=== PATIENT | female | born 1990 | race African-American/Black ===

== ENCOUNTER 2022-10-24 09:43 | Emergency (ER) | payer OTHER ==
[~2022-10-24] VITALS: Ht 170.2 cm; Wt 78.0 kg
[2022-10-24] MEDS ORDERED: IBUP200T46 PO (10:16)
[2022-10-24 13:30] VITALS: BP 138/78
== END 2022-10-24 13:32 | disposition home or self-care (01) ==
LOC: M ED 09:43
DX: S83.91XA Sprain of unspecified site of right knee, initial encounter (principal); Y93.02 Activity, running; Z79.1 Long term (current) use of non-steroidal anti-inflammatories (NSAID)

== ENCOUNTER 2023-08-27 08:04 | Emergency (ER) | payer OTHER ==
[~2023-08-27] VITALS: Ht 170.2 cm; Wt 78.9 kg
[~2023-08-27 08:04] MED LIST: IBUP200T46 PO
[2023-08-27] MEDS ORDERED: NITR100C2 (08:11)
[2023-08-27] MEDS: ONDANSETRON 4MG 2ML VIAL IV ONE (11:09)
[2023-08-27] MEDS: NS 1,000 ML IV ONE (11:09)
[2023-08-27 11:18] LABS: BASO % 0.1 % (0.0-1.0); HEMATOCRIT 41.3 % (36.0-47.0); HEMOGLOBIN 13.1 g/dl (12.0-15.5); LYMPH # 0.8 10^3/uL (1.5-5.0); MEAN CORPUSCULAR HEMOGLOBIN 27.6 pg (27.0-33.0); MEAN CORPUSCULAR HGB CONC 31.7 g/dl (32.0-36.5); MEAN CORPUSCULAR VOLUME 86.9 fl (80.0-96.0); MONO # 0.7 10^3/uL (0.0-0.8); MONO % 6.6 % (2.0-8.0); NEUTROPHILS # 9.5 10^3/uL (1.5-8.5); NEUTROPHILS % 86.1 % (36.0-66.0); PLATELET COUNT, AUTOMATED 256 10^3/uL (150-450); RED BLOOD COUNT 4.75 10^6/uL (4.00-5.40); WHITE BLOOD COUNT 11.1 10^3/uL (4.0-10.0)
[2023-08-27 11:37] LABS: LIPASE 23 U/L (12-53)
[2023-08-27 11:38] LABS: HCG, SERUM QUANTITATIVE < 2.6 MIU/ML (<4.2)
[2023-08-27 11:39] LABS: ALBUMIN 3.7 G/DL (3.2-5.2); ALKALINE PHOSPHATASE 48 U/L (46-116); ALT/SGPT 11 U/L (7.0-40); AST/SGOT 14 U/L (<34); BILIRUBIN,DIRECT 0.5 MG/DL (<0.4); BILIRUBIN,TOTAL 1.2 MG/DL (0.3-1.2); BLOOD UREA NITROGEN 11 MG/DL (9-23); CALCIUM LEVEL 8.8 MG/DL (8.5-10.1); CARBON DIOXIDE LEVEL 29 MMOL/L (20-31); CHLORIDE LEVEL 107 MMOL/L (98-107); CREATININE FOR GFR 0.87 MG/DL (0.55-1.30); GLOMERULAR FILTRATION RATE > 60.0 (>60); GLUCOSE, FASTING 100 MG/DL (60-100); POTASSIUM SERUM 4.7 MMOL/L (3.5-5.1); SODIUM LEVEL 140 MMOL/L (136-145); TOTAL PROTEIN 6.4 G/DL (5.7-8.2)
[2023-08-27] MEDS ORDERED: ISOVUE-370 76% 100ML VIAL As Ordered ONE (11:44)
[2023-08-27] MEDS: KETOROLAC 30 MG/ML 1ML VIAL IV ONE (12:40)
[2023-08-27] MEDS ORDERED: ONDA4TAB6 PO (12:51)
[2023-08-27 12:55] VITALS: BP 126/78; TEMP 97.6; O2SAT 100
== END 2023-08-27 13:42 | disposition home or self-care (01) ==
LOC: M ED 08:04
DX: N83.202 Unspecified ovarian cyst, left side (principal); K86.9 Disease of pancreas, unspecified; R11.2 Nausea with vomiting, unspecified; F10.10 Alcohol abuse, uncomplicated; Z91.010 Allergy to peanuts; Z79.1 Long term (current) use of non-steroidal anti-inflammatories (NSAID); Z79.83 Long term (current) use of bisphosphonates; Z79.899 Other long term (current) drug therapy
CPT/HCPCS: 74177; 80048; 80076; 81001; 83690; 84702; 85025; 87088; 87186; 96361; 96374; 96375; 99284; J1885; J2405; Q9967

== ENCOUNTER 2024-04-16 10:40 | Day surgery (SDC) | payer OTHER ==
[~2024-04-16] VITALS: Ht 170.2 cm; Wt 81.5 kg
[~2024-04-16 10:40] MED LIST changes: +CAPS42.54 EX; +LIDO76.52 TOP; +NITR100C2; +ONDA-282 PO; +VITA100093 PO
[2024-04-16] MEDS ORDERED: LR 1,000 ML IV SCH (11:05)
[2024-04-16 11:08] LABS: HEMATOCRIT 37.3 % (36.0-47.0); HEMOGLOBIN 12.1 g/dl (12.0-15.5); MEAN CORPUSCULAR HEMOGLOBIN 27.5 pg (27.0-33.0); MEAN CORPUSCULAR HGB CONC 32.4 g/dl (32.0-36.5); MEAN CORPUSCULAR VOLUME 84.8 fl (80.0-96.0); PLATELET COUNT, AUTOMATED 248 10^3/uL (150-450); WHITE BLOOD COUNT 7.2 10^3/uL (4.0-10.0)
[2024-04-16] MEDS ORDERED: fentaNYL 100 MCG/2 ML INJECTION As Ordered ONE (12:57)
[2024-04-16] MEDS ORDERED: KETOROLAC 60MG 2ML VIAL As Ordered ONE (12:57)
[2024-04-16] MEDS ORDERED: propofoL 200 MG/20 ML VIAL As Ordered ONE (12:57)
[2024-04-16] MEDS ORDERED: ONDANSETRON 4MG 2ML VIAL As Ordered ONE (12:57)
[2024-04-16] MEDS ORDERED: MIDAZOLAM INJ 2MG/2ML VIAL As Ordered ONE (12:57)
[2024-04-16] MEDS ORDERED: dexmedeTOMIDine (4MCG/ML)200MCG/50ML BTL (PRECEDEX) As Ordered ONE (12:57)
[2024-04-16] MEDS ORDERED: LIDOCAINE 2% 100MG/5ML SDV (FOR ANES.) As Ordered ONE (13:02)
[2024-04-16] MEDS: SILVER NITRATE APPLICATOR (1 = QTY 10) As Ordered ONE (14:39)
[2024-04-16] MEDS: LIDOCAINE W/EPINEPHRINE 1% 20ML VIAL As Ordered ONE (14:46)
[2024-04-16] MEDS ORDERED: oxyCODONE 5MG TAB PO PRN (15:00)
[2024-04-16] MEDS ORDERED: fentaNYL 100 MCG/2 ML INJECTION IV PRN (15:00)
[2024-04-16] MEDS ORDERED: ONDANSETRON 4MG 2ML VIAL IV PRN (15:00)
[2024-04-16 15:41] VITALS: BP 120/82; TEMP 97.4; O2SAT 100
== END 2024-04-16 16:20 | disposition home or self-care (01) ==
LOC: M SDC 10:40
PROVIDERS: ATTEND Student in an Organized Health Care Education/Training Program
DX: N88.9 Noninflammatory disorder of cervix uteri, unspecified (principal); R87.619 Unspecified abnormal cytological findings in specimens from cervix uteri; Z30.432 Encounter for removal of intrauterine contraceptive device; Z91.010 Allergy to peanuts
CPT/HCPCS: 36415; 57456; 58301; 81025; 85027; 86850; 86900; 86901; 88304; 88305; J1100; J1885; J2250; J2405; J3010

== ENCOUNTER 2025-01-01 09:28 | Emergency (ER) | payer OTHER ==
[~2025-01-01] VITALS: Ht 170.2 cm; Wt 89.0 kg
[2025-01-01 11:14] LABS: BASO # 0.0 10^3/uL (0.0-0.2); BASO % 0.3 % (0.0-1.0); EOS # 0.0 10^3/uL (0.0-0.5); EOS % 0.4 % (0.0-3.0); LYMPH # 1.8 10^3/uL (1.5-5.0); LYMPH % 16.4 % (24.0-44.0); MONO # 0.6 10^3/uL (0.0-0.8); MONO % 5.5 % (2.0-8.0); NEUTROPHILS # 8.5 10^3/uL (1.5-8.5); NEUTROPHILS % 76.4 % (36.0-66.0); PLATELET COUNT, AUTOMATED 205 10^3/uL (150-450)
[2025-01-01 11:26] LABS: INR 1.0
[2025-01-01 11:46] LABS: CPK CREATINE PHOSPHOKINASE 42 U/L (34-145)
[2025-01-01 12:06] LABS: ALT/SGPT < 9 U/L (7.0-40); AST/SGOT 13 U/L (<34); CALCIUM LEVEL 8.8 MG/DL (8.5-10.1); CARBON DIOXIDE LEVEL 26 MMOL/L (20-31); CHLORIDE LEVEL 106 MMOL/L (98-107); CK-MB VALUE MASS < 1.0 NG/ML (<3.6); CREATININE FOR GFR 0.68 MG/DL (0.55-1.30); FREE T4 0.92 NG/DL (0.89-1.76); GLOMERULAR FILTRATION RATE > 90.0 (>60); POTASSIUM SERUM 4.0 MMOL/L (3.5-5.1); SODIUM LEVEL 141 MMOL/L (136-145)
[2025-01-01 12:48] LABS: CK-MB VALUE MASS 1.0 NG/ML (<3.6)
[2025-01-01 12:50] LABS: CPK CREATINE PHOSPHOKINASE 57.0 U/L (34-145); MB/CK RELATIVE INDEX 1.75 (< OR =4)
[2025-01-01] MEDS: CALCIUM CARBONATE 500 MG CHEW U/D PO ONE (14:58)
[2025-01-01] MEDS: ACETAMINOPHEN 500 MG TAB PO ONE (15:00)
[2025-01-01 15:52] VITALS: BP 119/69; TEMP 98.2; O2SAT 98
== END 2025-01-01 15:55 | disposition home or self-care (01) ==
LOC: M ED 09:28
DX: O26.892 Other specified pregnancy related conditions, second trimester (principal); R07.9 Chest pain, unspecified; Z3A.24 24 weeks gestation of pregnancy; Z79.899 Other long term (current) drug therapy; Z91.010 Allergy to peanuts

== ENCOUNTER 2025-01-15 14:06 | Outpatient (CLI) | payer OTHER ==
[~2025-01-15] VITALS: Ht 170.2 cm; Wt 87.7 kg
[2025-01-15 14:37] VITALS: BP 117/71
[2025-01-15] MEDS ORDERED: PRENTAB9 PO (14:42)
[2025-01-15 16:51] VITALS: BP 113/70
== END 2025-01-15 17:03 | disposition home or self-care (01) ==
LOC: M LDO 14:06
PROVIDERS: ATTEND Specialist
DX: O26.892 Other specified pregnancy related conditions, second trimester (principal); R06.00 Dyspnea, unspecified; Z3A.26 26 weeks gestation of pregnancy
CPT/HCPCS: 59025; 93005; G0463

== ENCOUNTER 2025-01-18 20:52 | Emergency (ER) | payer OTHER ==
[~2025-01-18] VITALS: Ht 170.2 cm; Wt 89.1 kg
[~2025-01-18 20:52] MED LIST changes: -CEFD300C PO
[2025-01-19 01:46] LABS: KETONE, URINE AUTO RFX NEGATIVE (NEGATIVE); LEUKOCYTE ESTERASE UR AUTO RFX 1+ (NEGATIVE); NITRITE, URINE AUTO RFX NEGATIVE (NEGATIVE); RBC, URINE AUTO RFX 0 /HPF (0-3); SQUAM EPITHELIAL CELL UR AURFX 0 /HPF (0-6); WBC, URINE AUTO RFX 4 /HPF (0-3)
[2025-01-19] MEDS ORDERED: CEFD300C PO (01:53)
[2025-01-19] MEDS: NS (Normal Saline) 0.9% 1,000 ML IV ONE (01:58)
[2025-01-19] MEDS: diphenhydrAMINE 50 MG/ML VIAL IV ONE (01:58)
[2025-01-19] MEDS: ACETAMINOPHEN *IV* 1,000 MG in IV 1 EA IV ONE (02:00)
[2025-01-19] MEDS: CEFDINIR 300 MG CAP PO ONE (02:04)
[2025-01-19 02:37] VITALS: BP 124/73; TEMP 98.2; O2SAT 98
== END 2025-01-19 02:41 | disposition home or self-care (01) ==
LOC: M ED 20:52
DX: O23.42 Unspecified infection of urinary tract in pregnancy, second trimester (principal); Z3A.27 27 weeks gestation of pregnancy; Z79.2 Long term (current) use of antibiotics; Z79.899 Other long term (current) drug therapy; Z91.010 Allergy to peanuts
CPT/HCPCS: 59025; 81001; 87088; 87186; 87486; 87581; 87633; 87798; 96365; 96375; 99284; G0463; J0131; J1200; J2765

== ENCOUNTER → 2025-01-18 | Outpatient (CLI) | payer OTHER ==
[~2025-01-18] VITALS: Ht 170.2 cm; Wt 87.1 kg
[~2025-01-18] MED LIST changes: +CEFD300C PO; +PRENTAB9 PO
[2025-01-18 20:18] VITALS: BP 113/62; O2SAT 99
== END ==
LOC: M LDO 20:05
PROVIDERS: ATTEND Obstetrics & Gynecology
DX: O98.512 Other viral diseases complicating pregnancy, second trimester (principal); Z3A.26 26 weeks gestation of pregnancy; Z91.010 Allergy to peanuts; Z79.899 Other long term (current) drug therapy
CPT/HCPCS: 59025; G0463

== ENCOUNTER 2025-03-07 16:50 | Outpatient (CLI) | payer OTHER ==
[~2025-03-07] VITALS: Ht 170.2 cm; Wt 89.3 kg
[~2025-03-07 16:50] MED LIST changes: +CEFD300C PO
[2025-03-07 17:09] VITALS: BP 115/64
[2025-03-07] MEDS ORDERED: HOME MED LIST COMPLETE! XX SCH (17:20)
== END 2025-03-07 17:47 | disposition home or self-care (01) ==
LOC: M LDO 16:50
PROVIDERS: ATTEND Obstetrics & Gynecology
DX: O36.8130 Decreased fetal movements, third trimester, not applicable or unspecified (principal); Z3A.34 34 weeks gestation of pregnancy
CPT/HCPCS: 59025; G0463